=== PATIENT | female | born 1985 | race Hispanic/Latino ===

== ENCOUNTER 2021-10-01 17:49 | Emergency (ER) | payer SELFPAY ==
[2021-10-01 18:25] LABS: BASOPHILS % (AUTO) 0.3 % (0.0-5.0); EOSINOPHILS % (AUTO) 4.1 % (0.0-8.0); HEMATOCRIT 38.8 % (36-48); LYMPHOCYTES % (AUTO) 20.6 % (21.0-51.0); MEAN CORPUSCULAR HEMOGLOBIN 28.7 pg (27.0-33.0); MEAN CORPUSCULAR HGB CONC 32.7 g/dL (32.0-36.0); MEAN CORPUSCULAR VOLUME 87.8 fL (79-99); MONOCYTES % (AUTO) 8.4 % (3.0-13.0); NEUTROPHILS % (AUTO) 66.3 % (40.0-77.0); PLATELET COUNT (AUTO) 302 K/uL (130-400); RED BLOOD CELL COUNT(AUTO) 4.42 MIL/uL (4.00-5.50); RED CELL DISTRIBUTION WIDTH 11.9 % (11.0-15.5); WHITE BLOOD COUNT (AUTO) 8.6 K/uL (4.8-10.8)
[2021-10-01 18:29] LABS: APPEARANCE,URINE Clear (CLEAR); BILIRUBIN,URINE Negative (NEGATIVE); COLOR,URINE Yellow (YELLOW); GLUCOSE, URINE (UA) Negative (NEGATIVE); KETONES,URINE Trace mg/dL (NEGATIVE); LEUKOCYTE ESTERASE ,URINE Trace (NEGATIVE); NITRATE,URINE Negative (NEGATIVE); OCCULT BLOOD,URINE Moderate (NEGATIVE); PH,URINE 5.5 (5.0-8.0); PROTEIN,URINE Negative (NEGATIVE)
[2021-10-01] MEDS ORDERED: ONDANSETRON 4MG INJ IVP ONE (18:30)
[2021-10-01] MEDS ORDERED: FAMOTIDINE 20MG VIAL IV ONE (18:30)
[2021-10-01] MEDS ORDERED: KETOROLAC 30MG VIAL (30MG/ML) IVP ONE (18:30)
[2021-10-01 18:37] LABS: CREATININE 0.6 mg/dL (0.5-1.5); POTASSIUM 3.7 mmol/L (3.5-5.1)
[2021-10-01 18:40] LABS: ALBUMIN 3.9 g/dL (3.5-5.0); BILIRUBIN,TOTAL 0.4 mg/dL (0.2-1.0); HCG,QUAL RESULT NEGATIVE (NEGATIVE); TOTAL PROTEIN, SERUM 7.7 g/dL (6.0-8.3)
[2021-10-01 18:49] LABS: BACTERIA,URINE Few /HPF (None Seen); RBC,URINE 0-1 /HPF (0-1); SQUAMOUS EPITHELIAL CELL,UR Few /HPF (0-2)
[2021-10-01] MEDS ORDERED: DICY20TA2 PO (19:05)
[2021-10-01] MEDS ORDERED: FAMO-136 PO (19:05)
[2021-10-01 19:28] VITALS: BP 132/74
== END 2021-10-01 19:29 | disposition home or self-care (01) ==
LOC: EDH 17:49
DX: K80.20 Calculus of gallbladder without cholecystitis without obstruction (principal); Z98.890 Other specified postprocedural states
CPT/HCPCS: 36415; 76705; 80053; 81001; 81025; 83690; 85025; 96374; 96375; 99284; J1885; J2405 ×2; J3490

== ENCOUNTER 2021-10-17 01:54 | Emergency (ER) | payer OTHER ==
[~2021-10-17] VITALS: Ht 154.9 cm; Wt 76.2 kg
[~2021-10-17 01:54] MED LIST: DICY20TA2 PO; FAMO-136 PO
[2021-10-17 02:27] LABS: BASOPHILS % (AUTO) 0.3 % (0.0-5.0); EOSINOPHILS % (AUTO) 4.1 % (0.0-8.0); HEMATOCRIT 39.2 % (36-48); LYMPHOCYTES % (AUTO) 18.8 % (21.0-51.0); MEAN CORPUSCULAR HEMOGLOBIN 28.5 pg (27.0-33.0); MEAN CORPUSCULAR HGB CONC 32.7 g/dL (32.0-36.0); MEAN CORPUSCULAR VOLUME 87.3 fL (79-99); MONOCYTES % (AUTO) 12.2 % (3.0-13.0); NEUTROPHILS % (AUTO) 64.3 % (40.0-77.0); PLATELET COUNT (AUTO) 335 K/uL (130-400); RED BLOOD CELL COUNT(AUTO) 4.49 MIL/uL (4.00-5.50); RED CELL DISTRIBUTION WIDTH 11.9 % (11.0-15.5); WHITE BLOOD COUNT (AUTO) 5.9 K/uL (4.8-10.8)
[2021-10-17 02:28] LABS: APPEARANCE,URINE Clear (CLEAR); BILIRUBIN,URINE Negative (NEGATIVE); COLOR,URINE Dark Yellow (YELLOW); GLUCOSE, URINE (UA) Negative (NEGATIVE); KETONES,URINE Negative (NEGATIVE); LEUKOCYTE ESTERASE ,URINE Negative (NEGATIVE); NITRATE,URINE Negative (NEGATIVE); OCCULT BLOOD,URINE Negative (NEGATIVE); PH,URINE 7.5 (5.0-8.0); PROTEIN,URINE Negative (NEGATIVE)
[2021-10-17 02:52] LABS: CREATININE 0.5 mg/dL (0.5-1.5)
[2021-10-17 03:01] LABS: ALBUMIN 3.9 g/dL (3.5-5.0); BILIRUBIN,TOTAL 2.6 mg/dL (0.2-1.0); TOTAL PROTEIN, SERUM 7.7 g/dL (6.0-8.3)
[2021-10-17] MEDS ORDERED: MORPHINE 4 MG SYG ONE (03:16)
[2021-10-17] MEDS ORDERED: ONDANSETRON 4MG INJ ONE (03:16)
[2021-10-17] MEDS ORDERED: MORPHINE 4 MG SYG IVP ONE (03:30)
[2021-10-17] MEDS ORDERED: ONDANSETRON 4MG INJ IVP ONE (03:30)
[2021-10-17 08:47] VITALS: BP 112/51
== END 2021-10-17 08:40 | disposition home or self-care (01) ==
LOC: EDH 01:54
DX: K75.9 Inflammatory liver disease, unspecified (principal); K80.50 Calculus of bile duct without cholangitis or cholecystitis without obstruction
CPT/HCPCS: 36415; 74176; 76705; 80053; 81003; 81025; 83690; 85025; 96374; 96375; 99285; J2270; J2405

== ENCOUNTER 2021-11-11 04:10 | Inpatient (IN) | payer OTHER ==
[~2021-11-11] VITALS: Ht 162.6 cm; Wt 80.2 kg
[2021-11-11 04:46] LABS: MEAN CORPUSCULAR HGB CONC 33.3 g/dL (32.0-36.0); PLATELET COUNT (AUTO) 242 K/uL (130-400); RED BLOOD CELL COUNT(AUTO) 4.14 MIL/uL (4.00-5.50); RED CELL DISTRIBUTION WIDTH 12.2 % (11.0-15.5); WHITE BLOOD COUNT (AUTO) 4.6 K/uL (4.8-10.8)
[2021-11-11 05:03] LABS: CREATININE 0.7 mg/dL (0.5-1.5); POTASSIUM 3.9 mmol/L (3.5-5.1)
[2021-11-11 05:12] LABS: ALBUMIN 3.4 g/dL (3.5-5.0); BILIRUBIN,TOTAL 1.4 mg/dL (0.2-1.0)
[2021-11-11 05:32] LABS: BASOPHILS % (AUTO) 0.3 % (0.0-5.0); EOSINOPHILS % (AUTO) 3.8 % (0.0-8.0); LYMPHOCYTES % (AUTO) 24.5 % (21.0-51.0); MONOCYTES % (AUTO) 8.2 % (3.0-13.0); NEUTROPHILS % (AUTO) 62.6 % (40.0-77.0)
[2021-11-11 06:08] LABS: APPEARANCE,URINE CLEAR (CLEAR); BILIRUBIN,URINE NEGATIVE (NEGATIVE); COLOR,URINE YELLOW (YELLOW); GLUCOSE, URINE (UA) NEGATIVE (NEGATIVE); KETONES,URINE NEGATIVE (NEGATIVE); LEUKOCYTE ESTERASE ,URINE NEGATIVE (NEGATIVE); NITRATE,URINE NEGATIVE (NEGATIVE); OCCULT BLOOD,URINE NEGATIVE (NEGATIVE); PROTEIN,URINE NEGATIVE (NEGATIVE)
[2021-11-11] MEDS ORDERED: ONDANSETRON 4MG INJ IVP ONE (06:30)
[2021-11-11] MEDS ORDERED: MORPHINE 4 MG SYG IVP ONE (06:30)
[2021-11-11] MEDS: 0.9%NACL 1000ML 1,000 ML IV SCH ×2 (10:40→20:12)
[2021-11-11] MEDS: ZOSYN 3.375GM+NS 50ML 50 ML IV SCH ×2 (12:53→20:26)
[2021-11-11 18:29] LABS: HEPATITIS A IGM ANTIBODY Non-Reactive (Nonreactive); HEPATITIS B CORE IGM ANTIBODY Non-Reactive (Negative); HEPATITIS B SURFACE ANTIGEN Non-Reactive (Nonreactive); HEPATITIS C ANTIBODY Non-Reactive (Nonreactive)
[2021-11-11] MEDS: FAMOTIDINE 20MG VIAL IV SCH (20:26)
[2021-11-11] MEDS: ACETAMINOPHEN WITH CODEINE 1 TAB TAB PO PRN (22:22)
[2021-11-11] MEDS: HYDROMORPHONE 1 MG INJ IVP PRN (23:57)
[2021-11-12 04:20] VITALS: BP 120/76
[2021-11-12] MEDS: ZOSYN 3.375GM+NS 50ML 50 ML IV SCH ×3 (04:41→20:47)
[2021-11-12] MEDS: HYDROMORPHONE 1 MG INJ IVP PRN ×4 (04:42→21:20)
[2021-11-12] MEDS ORDERED: ONDANSETRON 4MG INJ ONE (04:43)
[2021-11-12] MEDS: 0.9%NACL 1000ML 1,000 ML IV SCH ×3 (06:00→20:47)
[2021-11-12 07:59] VITALS: BP 122/66
[2021-11-12] MEDS: FAMOTIDINE 20MG VIAL IV SCH ×2 (08:04→20:47)
[2021-11-12] MEDS: ENOXAPARIN SODIUM 40 MG/0.4 ML SYRINGE SQ SCH (08:05)
[2021-11-12 08:42] LABS: CREATININE 0.5 mg/dL (0.5-1.5)
[2021-11-12 08:47] LABS: ALBUMIN 3.4 g/dL (3.5-5.0); TOTAL PROTEIN, SERUM 7.2 g/dL (6.0-8.3)
[2021-11-12 11:18] VITALS: BP 130/75
[2021-11-12 13:15] VITALS: BP 108/70
[2021-11-12] MEDS ORDERED: LORAZEPAM 2 MG/ML 1 ML VIAL ONE (13:43)
[2021-11-12] MEDS ORDERED: LORAZEPAM 2 MG/ML 1 ML VIAL IVP ONE ×2 (15:15→15:30)
[2021-11-12 16:00] VITALS: BP 131/78
[2021-11-12 20:06] VITALS: BP 125/80
[2021-11-13 00:45] VITALS: BP 119/60
[2021-11-13] MEDS: KETOROLAC 15MG/ML VIAL (15MG/ML) IV PRN ×4 (01:34→23:09)
[2021-11-13] MEDS: HYDROMORPHONE 1 MG INJ IVP PRN ×4 (04:21→20:10)
[2021-11-13 04:28] VITALS: BP 123/71
[2021-11-13] MEDS: ZOSYN 3.375GM+NS 50ML 50 ML IV SCH ×3 (04:45→20:10)
[2021-11-13 07:00] VITALS: BP 128/92
[2021-11-13 07:10] LABS: ALBUMIN 2.9 g/dL (3.5-5.0); CREATININE 0.6 mg/dL (0.5-1.5); MAGNESIUM 1.5 mg/dL (1.80-2.40); POTASSIUM 3.7 mmol/L (3.5-5.1); TOTAL PROTEIN, SERUM 6.5 g/dL (6.0-8.3)
[2021-11-13 07:30] LABS: BASOPHILS % (AUTO) 0.1 % (0.0-5.0); HEMATOCRIT 45.3 % (36-48); LYMPHOCYTES % (AUTO) 4.8 % (21.0-51.0); MEAN CORPUSCULAR HGB CONC 33.8 g/dL (32.0-36.0); MONOCYTES % (AUTO) 5.6 % (3.0-13.0); NEUTROPHILS % (AUTO) 89.1 % (40.0-77.0); PLATELET COUNT (AUTO) 287 K/uL (130-400); RED BLOOD CELL COUNT(AUTO) 5.27 MIL/uL (4.00-5.50); RED CELL DISTRIBUTION WIDTH 12.4 % (11.0-15.5); WHITE BLOOD COUNT (AUTO) 14.5 K/uL (4.8-10.8)
[2021-11-13] MEDS: FAMOTIDINE 20MG VIAL IV SCH ×2 (07:37→20:09)
[2021-11-13] MEDS: ENOXAPARIN SODIUM 40 MG/0.4 ML SYRINGE SQ SCH (09:00)
[2021-11-13] MEDS: 0.9%NACL 1000ML 1,000 ML IV SCH ×2 (10:01→20:21)
[2021-11-13 11:00] VITALS: BP 123/76
[2021-11-13] MEDS ORDERED: DOCUSATE SODIUM 100 MG CAP PO SCH (12:00)
[2021-11-13] MEDS ORDERED: LACTULOSE 20 GM/30 ML UDCUP PO SCH (12:00)
[2021-11-13 16:00] VITALS: BP 136/87
[2021-11-13 20:00] VITALS: BP 122/75
[2021-11-13] MEDS: ONDANSETRON 4MG INJ IVP PRN (20:09)
[2021-11-14] VITALS (23 sets, daily range): BP systolic 114–156; BP diastolic 69–86
[2021-11-14] MEDS: HYDROMORPHONE 1 MG INJ IVP PRN ×3 (02:30→16:29)
[2021-11-14] MEDS: ZOSYN 3.375GM+NS 50ML 50 ML IV SCH ×3 (05:26→21:00)
[2021-11-14 06:02] LABS: HEMATOCRIT 42.4 % (36-48); MEAN CORPUSCULAR HEMOGLOBIN 28.7 pg (27.0-33.0); MEAN CORPUSCULAR HGB CONC 33.5 g/dL (32.0-36.0); MEAN CORPUSCULAR VOLUME 85.8 fL (79-99); RED BLOOD CELL COUNT(AUTO) 4.94 MIL/uL (4.00-5.50); RED CELL DISTRIBUTION WIDTH 12.8 % (11.0-15.5); WHITE BLOOD COUNT (AUTO) 19.2 K/uL (4.8-10.8)
[2021-11-14] MEDS: 0.9%NACL 1000ML 1,000 ML IV SCH ×2 (06:22→21:00)
[2021-11-14 06:41] LABS: CREATININE 0.6 mg/dL (0.5-1.5); POTASSIUM 3.1 mmol/L (3.5-5.1)
[2021-11-14] MEDS ORDERED: PHENYLEPHRINE HCL 10 MG/ML 1ML VIAL IV ONE (07:15)
[2021-11-14] MEDS ORDERED: PROPOFOL 10 MG/ML 20ML VIAL IV ONE (07:18)
[2021-11-14] MEDS ORDERED: ROCURONIUM 10MG/1ML SYR 10 MG/ML ML ONE (07:19)
[2021-11-14] MEDS ORDERED: FENTANYL CITRATE PF 50 MCG/1 ML 2ML VIAL ONE (07:19)
[2021-11-14] MEDS ORDERED: GLYCOPYRROLATE 1 MG/5 ML SYRINGE ONE (07:19)
[2021-11-14] MEDS ORDERED: LACTATED RINGERS 1000ML 1,000 ML IV ONE (07:26)
[2021-11-14] MEDS ORDERED: BUPIVACAINE/PF 0.5% 30ML VIAL ONE (07:34)
[2021-11-14] MEDS ORDERED: MIDAZOLAM HCL 1 MG/ML 2ML VIAL ONE (07:42)
[2021-11-14] MEDS ORDERED: ONDANSETRON 4MG INJ ONE (08:11)
[2021-11-14] MEDS ORDERED: VECURONIUM 10MG/10ML IV ONE (08:24)
[2021-11-14] MEDS ORDERED: NEOSTIGMINE 5MG/5ML SYR IV ONE (08:50)
[2021-11-14] MEDS ORDERED: SUGAMMADEX SODIUM 200 MG/2 ML VIAL IV ONE (08:50)
[2021-11-14 08:55] LABS: ALBUMIN 2.6 g/dL (3.5-5.0); BILIRUBIN,DIRECT 0.5 mg/dL (0.0-0.3); BILIRUBIN,TOTAL 1.4 mg/dL (0.2-1.0); MAGNESIUM 1.5 mg/dL (1.80-2.40)
[2021-11-14] MEDS ORDERED: MEPERIDINE-PF 25 MG/ML SYG ONE ×3 (09:03→09:25)
[2021-11-14 09:08] LABS: CRP QUANTITATIVE 36.7 mg/L (0.00-9.0)
[2021-11-14] MEDS ORDERED: KCL 20 MEQ ERTAB PO SCH (11:00)
[2021-11-14] MEDS ORDERED: BENZOCAINE/MENTH/CETYLPYRD CL 1 EACH LOZENGE MM PRN (11:30)
[2021-11-14] MEDS: MAGNESIUM 2GM PREMIX 50ML 50 ML IV SCH (12:00)
[2021-11-14] MEDS: KETOROLAC 30MG VIAL (30MG/ML) IVP SCH ×3 (12:02→23:30)
[2021-11-14] MEDS: ENOXAPARIN SODIUM 40 MG/0.4 ML SYRINGE SQ SCH (12:07)
[2021-11-14] MEDS: FAMOTIDINE 20MG VIAL IV SCH ×2 (12:07→20:59)
[2021-11-14 14:18] LABS: CREATININE 0.6 mg/dL (0.5-1.5); MAGNESIUM 1.6 mg/dL (1.80-2.40); POTASSIUM 3.3 mmol/L (3.5-5.1)
[2021-11-14] MEDS: ACETAMINOPHEN WITH CODEINE 1 TAB TAB PO PRN (14:43)
[2021-11-14] MEDS: DOCUSATE SODIUM 100 MG CAP PO SCH ×2 (14:43→20:59)
[2021-11-14] MEDS: TRAMADOL HCL 50 MG TABLET PO PRN (21:43)
[2021-11-15] VITALS: BP 116/66
[2021-11-15] MEDS ORDERED: HYDROMORPHONE 0.5 MG SYG (0.5MG/0.5ML) IVP PRN
[2021-11-15] MEDS ORDERED: HYDROMORPHONE 0.5 MG SYG (0.5MG/0.5ML) ONE (00:12)
[2021-11-15 04:00] VITALS: BP 117/71
[2021-11-15] MEDS: ZOSYN 3.375GM+NS 50ML 50 ML IV SCH ×3 (05:18→20:47)
[2021-11-15 05:30] LABS: BASOPHILS % (AUTO) 0.2 % (0.0-5.0); EOSINOPHILS % (AUTO) 0.6 % (0.0-8.0); HEMATOCRIT 34.7 % (36-48); LYMPHOCYTES % (AUTO) 6.3 % (21.0-51.0); MEAN CORPUSCULAR HEMOGLOBIN 28.8 pg (27.0-33.0); MEAN CORPUSCULAR HGB CONC 33.1 g/dL (32.0-36.0); MONOCYTES % (AUTO) 5.5 % (3.0-13.0); NEUTROPHILS % (AUTO) 86.9 % (40.0-77.0); PLATELET COUNT (AUTO) 212 K/uL (130-400); RED BLOOD CELL COUNT(AUTO) 3.99 MIL/uL (4.00-5.50); RED CELL DISTRIBUTION WIDTH 12.7 % (11.0-15.5); WHITE BLOOD COUNT (AUTO) 15.8 K/uL (4.8-10.8)
[2021-11-15 05:54] LABS: ALBUMIN 2.2 g/dL (3.5-5.0); BILIRUBIN,TOTAL 1.1 mg/dL (0.2-1.0); CREATININE 0.6 mg/dL (0.5-1.5); POTASSIUM 3.3 mmol/L (3.5-5.1); TOTAL PROTEIN, SERUM 5.7 g/dL (6.0-8.3)
[2021-11-15] MEDS: KETOROLAC 15MG/ML VIAL (15MG/ML) IV PRN ×2 (07:08→13:33)
[2021-11-15 08:00] VITALS: BP 125/77
[2021-11-15] MEDS ORDERED: KCL 20 MEQ ERTAB PO SCH (08:30)
[2021-11-15] MEDS: FAMOTIDINE 20MG VIAL IV SCH ×2 (09:40→20:47)
[2021-11-15] MEDS: DOCUSATE SODIUM 100 MG CAP PO SCH ×3 (09:40→20:47)
[2021-11-15] MEDS: POLYETHYLENE GLYCOL 3350 17 GM POWD.PACK PO SCH (09:41)
[2021-11-15] MEDS: ENOXAPARIN SODIUM 40 MG/0.4 ML SYRINGE SQ SCH (09:42)
[2021-11-15] MEDS: TRAMADOL HCL 50 MG TABLET PO PRN (09:43)
[2021-11-15 12:00] VITALS: BP 122/76
[2021-11-15 15:50] VITALS: BP 121/75
[2021-11-15 20:00] VITALS: BP 124/75
[2021-11-15] MEDS: ACETAMINOPHEN 325 MG TAB PO PRN (20:48)
[2021-11-16] VITALS: BP 116/75
[2021-11-16] MEDS: 0.9%NACL 1000ML 1,000 ML IV SCH ×2 (01:10→17:52)
[2021-11-16] MEDS: ACETAMINOPHEN 325 MG TAB PO PRN (01:58)
[2021-11-16 04:00] VITALS: BP 117/83
[2021-11-16] MEDS: ZOSYN 3.375GM+NS 50ML 50 ML IV SCH ×3 (04:21→21:12)
[2021-11-16 05:14] LABS: BASOPHILS % (AUTO) 0.4 % (0.0-5.0); EOSINOPHILS % (AUTO) 2.5 % (0.0-8.0); HEMATOCRIT 29.9 % (36-48); LYMPHOCYTES % (AUTO) 8.6 % (21.0-51.0); MEAN CORPUSCULAR HEMOGLOBIN 29.4 pg (27.0-33.0); MEAN CORPUSCULAR HGB CONC 34.4 g/dL (32.0-36.0); MEAN CORPUSCULAR VOLUME 85.4 fL (79-99); MONOCYTES % (AUTO) 8.4 % (3.0-13.0); NEUTROPHILS % (AUTO) 79.7 % (40.0-77.0); PLATELET COUNT (AUTO) 206 K/uL (130-400); RED CELL DISTRIBUTION WIDTH 12.5 % (11.0-15.5); WHITE BLOOD COUNT (AUTO) 16.2 K/uL (4.8-10.8)
[2021-11-16 05:33] LABS: CREATININE 0.5 mg/dL (0.5-1.5); POTASSIUM 3.3 mmol/L (3.5-5.1)
[2021-11-16 05:58] LABS: BILIRUBIN,TOTAL 0.9 mg/dL (0.2-1.0); MAGNESIUM 1.8 mg/dL (1.80-2.40); TOTAL PROTEIN, SERUM 5.3 g/dL (6.0-8.3)
[2021-11-16] MEDS ORDERED: MAGNESIUM 2GM PREMIX 50ML 50 ML IV PRN (06:00)
[2021-11-16] MEDS ORDERED: POTASSIUM CHLORIDE 20MEQ/100ML 100 ML IV PRN (06:00)
[2021-11-16] MEDS ORDERED: KCL 20 MEQ ERTAB PO PRN (06:00)
[2021-11-16] MEDS ORDERED: LIDOCAINE HCL-MPF 1% 2ML VIAL IV PRN (06:00)
[2021-11-16] MEDS: POTASSIUM CHLORIDE 10% ELIXIR 20 MEQ/15 ML UDCUP PO PRN ×3 (06:05→21:12)
[2021-11-16 08:00] VITALS: BP 100/56
[2021-11-16] MEDS: FAMOTIDINE 20MG VIAL IV SCH (09:09)
[2021-11-16] MEDS: KETOROLAC 15MG/ML VIAL (15MG/ML) IV PRN ×2 (09:09→14:51)
[2021-11-16] MEDS: DOCUSATE SODIUM 100 MG CAP PO SCH ×3 (09:11→21:11)
[2021-11-16] MEDS: ENOXAPARIN SODIUM 40 MG/0.4 ML SYRINGE SQ SCH (09:12)
[2021-11-16] MEDS: POLYETHYLENE GLYCOL 3350 17 GM POWD.PACK PO SCH (09:12)
[2021-11-16 11:20] VITALS: BP 124/73
[2021-11-16 16:00] VITALS: BP 121/73
[2021-11-16] MEDS: MAGNESIUM 2GM PREMIX 50ML 50 ML IV SCH (17:51)
[2021-11-16] MEDS: ACETAMINOPHEN WITH CODEINE 1 TAB TAB PO PRN (17:51)
[2021-11-16] MEDS ORDERED: PANTOPRAZOLE 40 MG/VIAL IVP SCH (19:30)
[2021-11-16 20:00] VITALS: BP 115/69
[2021-11-17] VITALS: BP 131/83
[2021-11-17] MEDS: ACETAMINOPHEN WITH CODEINE 1 TAB TAB PO PRN ×2 (00:19→08:10)
[2021-11-17 04:00] VITALS: BP 128/85
[2021-11-17] MEDS: ZOSYN 3.375GM+NS 50ML 50 ML IV SCH (04:19)
[2021-11-17 05:32] LABS: BASOPHILS % (AUTO) 0.2 % (0.0-5.0); EOSINOPHILS % (AUTO) 2.9 % (0.0-8.0); LYMPHOCYTES % (AUTO) 9.7 % (21.0-51.0); MEAN CORPUSCULAR HEMOGLOBIN 28.9 pg (27.0-33.0); MEAN CORPUSCULAR HGB CONC 33.2 g/dL (32.0-36.0); MEAN CORPUSCULAR VOLUME 87.1 fL (79-99); MONOCYTES % (AUTO) 9.6 % (3.0-13.0); NEUTROPHILS % (AUTO) 76.8 % (40.0-77.0); PLATELET COUNT (AUTO) 236 K/uL (130-400); RED BLOOD CELL COUNT(AUTO) 3.56 MIL/uL (4.00-5.50); RED CELL DISTRIBUTION WIDTH 12.8 % (11.0-15.5); WHITE BLOOD COUNT (AUTO) 15.8 K/uL (4.8-10.8)
[2021-11-17 06:06] LABS: ALBUMIN 2.1 g/dL (3.5-5.0); BILIRUBIN,TOTAL 0.6 mg/dL (0.2-1.0); CREATININE 0.5 mg/dL (0.5-1.5); TOTAL PROTEIN, SERUM 5.7 g/dL (6.0-8.3)
[2021-11-17] MEDS: 0.9%NACL 1000ML 1,000 ML IV SCH (06:17)
[2021-11-17] MEDS: ONDANSETRON 4MG INJ IVP PRN (08:09)
[2021-11-17] MEDS: ENOXAPARIN SODIUM 40 MG/0.4 ML SYRINGE SQ SCH (09:00)
[2021-11-17] MEDS: POLYETHYLENE GLYCOL 3350 17 GM POWD.PACK PO SCH (09:01)
[2021-11-17] MEDS: DOCUSATE SODIUM 100 MG CAP PO SCH (09:01)
[2021-11-17] MEDS ORDERED: TRAM50TA4 PO (09:12)
[2021-11-17] MEDS ORDERED: AMOX1TAB16 PO (09:12)
[2021-11-17 10:19] VITALS: BP 128/74
== END 2021-11-17 12:35 | disposition home or self-care (01) | DRG 417 ==
LOC: EDH 04:10 → EDHIP 04:11 → 3BH 11-12 04:34
PROVIDERS: ADMIT Hospitalist; ATTEND Hospitalist
PROC: 0FT44ZZ Resection of Gallbladder, Percutaneous Endoscopic Approach (ICD-10-PCS; principal; 2021-11-14 07:42)
DX: K85.10 Biliary acute pancreatitis without necrosis or infection (principal); E43 Unspecified severe protein-calorie malnutrition; K80.00 Calculus of gallbladder with acute cholecystitis without obstruction; R18.8 Other ascites; E66.9 Obesity, unspecified; Z20.822 Contact with and (suspected) exposure to COVID-19; R79.89 Other specified abnormal findings of blood chemistry; D64.9 Anemia, unspecified; E87.6 Hypokalemia; Z68.30 Body mass index [BMI] 30.0-30.9, adult
CPT/HCPCS: 36415; 74018; 74181; 76705; 80048; 80053; 80074; 80076; 81003; 83690; 83735; 84145; 84703; 85025; 85027; 85651; 86140; 87635; 97039; C9113; G0378; J1170; J1650; J1885; J2060; J2175; J2250; J2270; J2370; J2405; J2543; J2704; J2710; J3010; J3475; J3490; J7030; J7120